=== PATIENT | female | born 1950 | race Caucasian/White ===

== ENCOUNTER → 2017-03-07 | Outpatient (CLI) | payer OTHER ==
[2017-03-07] MEDS: PHENYLephrine 10% 5 ML OPH (12:09)
[2017-03-07] MEDS: TROPICAMIDE 1% 3 ML OPH (12:09)
[2017-03-07] MEDS: PROPARACAINE 0.5% 15 ML OPH (12:09)
== END | disposition home or self-care (01) ==
LOC: RAD 11:24
DX: H26.9 Unspecified cataract (principal)
CPT/HCPCS: 66821